=== PATIENT | female | born 1995 | race Caucasian/White ===

== ENCOUNTER 2016-10-13 12:52 | Outpatient (CLI) | payer OTHER ==
--- NOTE | 2016-10-14 12:31 | DIAGNOSTIC IMAGING REPORT ---
PROCEDURE: US LTD BREAST ULTRASOUND - LT INDICATION: Palpable area lower outer left breast. TECHNIQUE: High resolution ellis scale and color Doppler sonographic images of the lower outer left breast. COMPARISON: None. FINDINGS: There is a 2.4 x 2.4 x 1.0 cm mildly lobulated hypoechoic ovoid nodular area in the lower outer left breast associated with mild increased vascularity and through transmission. IMPRESSION: 1. There is a 2.4 x 2.4 1.0 cm ovoid solid mass in the lower outer left breast. 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 Malignant neoplasm is less likely. Excisional biopsy is recommended to confirm. 2. Findings discussed with the patient. 3. Findings called to GULILE Moreau. RESULT CODE: 4- Suspicious abnormality - biopsy should be considered. A. A negative report should not delay biopsy if a dominant or clinically suspicious mass is present. 10-15% of cancers are not identified by x-ray. B. A negative report may reinforce clinical impression. C. Adenosis and dense breasts may obscure an underlying neoplasm. D. False positive reports average 6-10%. E.. A yearly screening mammogram is recommended. A reminder letter will be scheduled.
== END 2016-10-13 23:00 ==
LOC: US SRH 12:52
DX: N63 Unspecified lump in breast (principal)